=== PATIENT | male | born 1955 | race Caucasian/White ===

== ENCOUNTER 2023-04-09 19:58 | Emergency (ER) | payer MEDICARE, OTHER, SELFPAY ==
[2023-04-09 20:07] VITALS: BP 161/76; PULSE 82; RESP 18; TEMP 36.6; O2SAT 97; BMI 24.3
--- NOTE | 2023-04-09 20:13 | DI.CT.S_ITS ---
PROCEDURE: CT HEAD/BRAIN WO CON INDICATIONS: Hit head on wooden beam on Wednesday, severe h/a TECHNIQUE: Noncontrast 4.5 mm thick angled axial sections acquired from the foramen magnum to the vertex, with coronal and sagittal reformats. For radiation dose reduction, the following was used: automated exposure control, adjustment of mA and/or kV according to patient size. COMPARISON: None. FINDINGS: Image quality: Excellent. CSF spaces: Basal cisterns are patent. No extra-axial fluid collections. Ventricles are normal in size and shape. Brain: No intracranial hemorrhage, mass, or mass effect. Vasquez-white matter interface appears preserved. Skull and face: Calvarium and visualized facial bones are intact, without suspicious lesions. Sinuses: Visualized sinuses and mastoids are clear. IMPRESSION: 1. No acute intracranial abnormality. Dictated by: Marquis Vance M.D. on 04/09/2023 at 21:02 Approved by: Marquis Vance M.D. on 04/09/2023 at 21:08
--- NOTE | 2023-04-09 21:37 | ED.HEATRA ---
HPI - Head Injury General Chief complaint: Trauma Stated complaint: Head inj Time Seen by Provider: 04/09/23 21:36 Source: patient Mode of arrival: Ambulatory History of Present Illness HPI Narrative: Patient is a 67-year-old male history of hyperlipidemia presenting today after closed head injury. Reports walking down in the basement 3 days ago when he hit his head on a beam. He did not lose consciousness but does have large wound on the top of his head dropped him down. Since then he has been extremely fatigued no nausea or vomiting. He has been colder than normal despite the warm weather. No fever although he has been taking Tylenol 3 times a day. No numbness tingling or weakness he does not have any neck pain. noted that left eye was a little more droopy today. He also developed headache between his temples today which was abnormal. He is sensitive to light. No abdominal pain nausea vomiting. No painful frequent urination. No other symptoms. He is not on any antiplatelet or anticoagulation medication. Related Data Allergies Allergy/AdvReac Type Severity Reaction Status Date / Time grass pollen AdvReac Mild Verified 04/09/23 22:03 Review of Systems Review of Systems ROS Unobtainable: All systems reviewed & are unremarkable except as noted in HPI and below Patient History Social History Smoking Status: Never smoker Smoking Status: Never smoker alcohol intake frequency: 3 or more drinks per day Alcohol type: beer Substance Use Type: does not use Exam Initial Vital Signs Initial Vital Signs: Vital Signs Temperature 98 F 04/09/23 20:07 Pulse Rate 82 04/09/23 20:07 Respiratory Rate 18 04/09/23 20:07 Blood Pressure 161/76 H 04/09/23 20:07 Pulse Oximetry 97 04/09/23 20:07 Oxygen Delivery Method Room Air 04/09/23 20:07 GENERAL: Alert well-appearing 67-year-old male HEENT: Head posterior scalp large scabbed over area no significant depression no contusion,EOMI, pupils reactive, left-sided upper lid drooping and no proptosis appreciated face symmetric, [moist] mucous membranes CARDIOVASCULAR: Regular rate and rhythm without murmurs, rubs or gallops. RESPIRATORY: Breath sounds equal bilaterally, no wheezes rales or rhonchi. ABDOMEN: Soft, nontender. Normoactive bowel sounds all 4 quadrants. No guarding or rebound. EXTREMITIES: Normal range of motion, no clubbing or edema. Neurovascularly intact NEUROLOGICAL: Alert and oriented x4.Normal gait and speech. Cranial nerves II through XII grossly intact. SKIN: Warm, dry, no laceration, no petechiae, no rashes or lesions. Course Orders Ordered: ED Orders 04/09/23 20:13 CT head/brain wo con Stat 04/09/23 21:38 EKG-12 Lead Stat 04/09/23 21:45 Covid-19 + FLU A/B + RSV - PCR Stat 04/09/23 21:55 Complete Blood Count AUTO DIFF Stat Comprehensive Metabolic Panel Stat Lipase Stat Troponin & CK Cardiac Panel Stat Discontinued Medications Ketorolac Tromethamine (Ketorolac 30 Mg/Ml Vial) 15 mg IV NOW ONE Stop: 04/09/23 21:38 Last Admin: 04/09/23 21:56 Dose: 15 mg Documented By: AP Vital Signs Vital signs: Vital Signs - 8 hr 04/09/23 22:25 04/09/23 23:30 Pulse Rate 68 70 Respiratory Rate 18 16 Blood Pressure 126/71 135/64 Pulse Oximetry 98 98 Oxygen Delivery Method Room Air Room Air MDM - Head Injury Lab Data 04/09/23 21:55 04/09/23 21:55 Labs: Lab Results 04/09/23 04/09/23 04/09/23 Range/Units 21:45 21:55 21:55 WBC 5.8 (4.5-11.0) X10^3/uL RBC 4.63 (4.5-5.9) X10^6/uL Hgb 15.0 (13.5-17.5) g/dL Hct 42.4 (41-53) % MCV 91.6 (80-100) fL MCH 32.3 (26-34) PG MCHC 35.3 (30-36) % RDW 12.9 (11.6-14.8) % Plt Count 125 L (150-400) X10^3/uL Neut % (Auto) 50.7 (50-75) % Lymph % (Auto) 37.4 (25-40) % [place] % (Auto) 8.0 (3-14) % Eos % (Auto) 2.9 (2-4) % Baso % (Auto) 1.0 (0-2) % Neut # (Auto) 3000 (0009-0290) /uL Lymph # (Auto) 2200 (7226-4923) /uL [place] # (Auto) 500 (0-900) /uL Eos # (Auto) 200 (0-450) /uL Baso # (Auto) 100 (0-100) /uL Sodium 137 (137-145) mmol/L Potassium 4.3 (3.4-5.1) mmol/L Chloride 100 (98-107) mmol/L Carbon Dioxide 32 (22-32) mmol/L BUN 21 H (9-20) mg/dL Creatinine 1.02 (0.66-1.25) mg/dL Estimated GFR > 60 (>60) mL/min BUN/Creatinine Ratio 20.6 (6-22) Glucose 95 (80-110) mg/dL Calcium 9.3 (8.4-10.2) mg/dL Total Bilirubin 0.5 (0.2-1.3) mg/dL AST 28 (17-59) IU/L ALT 30 (<50) IU/L Alkaline Phosphatase 47 (38-126) U/L Total Creatine Kinase 53 L (55-170) U/L Troponin I < 0.012 (0.01-0.034) ng/mL Total Protein 7.7 (6.3-8.2) g/dL Albumin 4.5 (3.5-5.0) g/dL Globulin 3.2 (1.7-4.1) g/dL Albumin/Globulin Ratio 1.4 (1.0-2.8) Lipase 156 (23-300) U/L SARS-CoV-2 (PCR) Negative (Negative) Influenza A (RT-PCR) Flu a negative (NEGATIVE) Influenza B (RT-PCR) Flu b negative (NEGATIVE) RSV (PCR) Negative (Negative) Urine Dip Bedside Urine Glucose Negative Bedside Urine Bilirubin - Negative Bedside Urine Ketone - Negative Urine Specific [place] 1.01 Bedside Urine Occult Blood - Negative Bedside Urine pH 6 Bedside Urine Protein - Negative Bedside Urine Urobilinogen - Negative Bedside Urine Nitrite - Negative Bedside Urine Leukocytes - Negative Esterase Imaging Data CT scan - head: Radiologist's Impression: PROCEDURE:? CT HEAD/BRAIN WO CON ? INDICATIONS:? Hit head on wooden beam on Wednesday, severe h/a ? TECHNIQUE:? Noncontrast 4.5 mm thick angled axial sections acquired from the foramen magnum to the vertex, with coronal and sagittal reformats.? For radiation dose reduction, the following was used:? automated exposure control, adjustment of mA and/or kV according to patient size.? ? COMPARISON:? None. ? FINDINGS:? Image quality:? Excellent.? ? CSF spaces:? Basal cisterns are patent.? No extra-axial fluid collections.? Ventricles are normal in size and shape.? ? Brain:? No intracranial hemorrhage, mass, or mass effect.? Vasquez-white matter interface appears preserved.? ? Skull and face:? Calvarium and visualized facial bones are intact, without suspicious lesions.? ? Sinuses:? Visualized sinuses and mastoids are clear.? ? IMPRESSION:? ? 1. No acute intracranial abnormality. ? ? Dictated by: Marquis Vance M.D. on 04/09/2023 at 21:02 ? ? ECG Data Interpretation: Normal sinus rhythm rate 66 VA interval 164 QRS [address] changes no T-wave inversions MDM Narrative Medical decision making narrative: Patient having concussive like symptoms after hitting his head. No evidence of infection electrolyte abnormality or other source of symptoms. Head CT does not show any abnormality. He does have an obvious abrasion and wound but that seems to be healing. I suspect concussion. Lots of education with patient and about concussion. At this time supportive care only Discharge Plan Departure Patient Disposition: Home Clinical Impression: Concussion syndrome Instructions: DI for Concussion, DI for Postconcussion Syndrome Activity Restrictions/Additional Instructions: *You have been diagnosed with concussion *What to do: At this time you can expect to intermittently have headaches dizziness and some nausea. Head CT is negative. Other workup in the ED is also negative. *Continue to take medications as directed Motrin 600 mg every 6 hours if needed for avqu-am-fbarydsq pain Tylenol 1000 mg every 6 hours if needed for atcx-rw-[id number] pain *Follow up with your primary care provider in 2-3 days or call [phone] *Return to ER if you should have persistent vomiting numbness tingling weakness visual changes facial droop or any new, worsening or concerning symptoms Stand Alone Forms: Patient Portal/API
[2023-04-09] MEDS: KETOROLAC 30 MG/ML VIAL 15 MG IV (21:56)
[2023-04-09 22:04] LABS: Add Manual Diff / Slide Review NO; Basophils Absolute Auto 100 /uL (0-100); Eosinophils Absolute Auto 200 /uL (0-450); Eosinophils Percent Auto 2.9 % (2-4); Hematocrit 42.4 % (41-53); Lymphocytes Absolute Auto 2200 /uL (1100-4500); Lymphocytes Percent Auto 37.4 % (25-40); Mean Corpuscular HGB Conc 35.3 % (30-36); Mean Corpuscular Hemoglobin 32.3 PG (26-34); Mean Corpuscular Volume 91.6 fL (80-100); Monocytes Absolute Auto 500 /uL (0-900); Neutrophils Absolute Auto 3000 /uL (1500-7000); Neutrophils Percent Auto 50.7 % (50-75); Platelet Count 125 X10^3/uL (150-400); Red Blood Cell Count 4.63 X10^6/uL (4.5-5.9); Red Cell Distribution Width 12.9 % (11.6-14.8); White Blood Cell Count 5.8 X10^3/uL (4.5-11.0)
[2023-04-09 22:25] VITALS: BP 126/71; PULSE 68; RESP 18; O2SAT 98
[2023-04-09 22:27] LABS: Alanine Aminotransferase 30 IU/L (<50); Albumin 4.5 g/dL (3.5-5.0); Albumin Globulin Ratio 1.4 (1.0-2.8); Alkaline Phosphatase 47 U/L (38-126); Aspartate Aminotransferase 28 IU/L (17-59); BUN Creatinine Ratio 20.6 (6-22); Bilirubin Total 0.5 mg/dL (0.2-1.3); Blood Urea Nitrogen 21 mg/dL (9-20); Calcium 9.3 mg/dL (8.4-10.2); Carbon Dioxide 32 mmol/L (22-32); Chloride 100 mmol/L (98-107); Creatine Kinase 53 U/L (55-170); Estimated Glomerular Filt Rate > 60 mL/min (>60); Globulin 3.2 g/dL (1.7-4.1); Glucose 95 mg/dL (80-110); HEMOLYSIS < 15 (0-50); Lipase 156 U/L (23-300); Potassium 4.3 mmol/L (3.4-5.1); Sodium 137 mmol/L (137-145); Total Protein 7.7 g/dL (6.3-8.2)
[2023-04-09 22:33] LABS: Influenza A - CEPHEID Flu A NEGATIVE (NEGATIVE); Influenza B - CEPHEID Flu B NEGATIVE (NEGATIVE); Respiratory Syncytial Virus Negative (Negative)
[2023-04-09 22:39] LABS: Troponin I < 0.012 ng/mL (0.01-0.034)
[2023-04-09 22:40] LABS: COVID-19 CEPHEID 4-PLEX PCR Negative (Negative)
[2023-04-09 23:30] VITALS: BP 135/64; PULSE 70; RESP 16; O2SAT 98
== END 2023-04-09 23:48 | disposition home or self-care (01) ==
PROVIDERS: Emergency Provider Emergency Medicine
DX: S06.0X0A Concussion without loss of consciousness, initial encounter (principal); W22.8XXA Striking against or struck by other objects, initial encounter; Z20.822 Contact with and (suspected) exposure to COVID-19; R03.0 Elevated blood-pressure reading, without diagnosis of hypertension
CPT/HCPCS: 0241U; 36415; 70450; 80053; 81003; 82550; 83690; 84484; 85025; 93005; 93010; 96374; 99284; J1885

== ENCOUNTER 2023-07-07 09:14 | Outpatient (RCR) | payer MEDICARE, OTHER, SELFPAY ==
--- NOTE | 2023-07-07 15:14 | PT.OIE ---
Current Diagnoses Postconcussional syndrome (07/07/23) Dizziness and giddiness (07/07/23) Visit Care Team Role Provider Type Sigifredo Putnam MD Primary Care Provider Non-Staff Specialty: Internal Medicine Address: [address], [place], [address] Email: Other Providers Specialty: Address: Phone: Fax: Email: Elmer Brizuela MD Attending Provider Non-Staff Referring Provider Specialty: Sports Medicine Address: [facility] [address], [place], [address] Fax: Email: Physical Therapy Initial Evaluation PT-OP-A Visit Information Start: 07/07/23 10:07 Freq: Status: Active Protocol: Document 07/07/23 09:30 DCW (Rec: 07/07/23 10:09 DCW [id number]) Out-Patient Physical Therapy Visit Information Visit Information Visit Type Initial Evaluation Visit Start Time 09:30 Visit Stop Time 09:55 Total Visit Minutes 25 Visit Number 1 Number of MATERIAL CLERK Visits 0 Evaluation Information Evaluation Date 07/07/23 PT-OP-B Current Condition Start: 07/07/23 10:07 Freq: Status: Active Protocol: Document 07/07/23 09:30 DCW (Rec: 07/07/23 15:11 DCW [id number]) Current Condition History of Current Condition Onset Date April 06, 2023 Current Complaints None History of Current Condition Pt suffered a concussion three months ago after hitting his head on a beam while walking down the stairs to his basement. No LOC, however was experiencing severe fatigue, headaches, light-sensitivity, dizziness, and poor balance. Was seen in the ED three days later. Head CT was negative. Pt reports he was given some medication and then pretty much slept through the month of April and half of May. Was still suffering from headaches, dizziness, and balance issues, but has gone from not being able to walk a block to walking 2-3 miles with his dog , and has been practicing balance by walking on the beach and walking backwards. Has been showing great improvement over the last 1.5 months, and feels like he has pretty much returned to normal . Has been up on ladders trimming trees and has returned to driving. Pt currently has no complaints or concerns. PT-OP-C Subjective Start: 07/07/23 10:07 Freq: Status: Active Protocol: Document 07/07/23 09:30 DCW (Rec: 07/07/23 10:09 DCW [id number]) OP-PT Subjective Patient Comments Patient Comments I'm sorry if I'm wasting your time, I'm feeling pretty good , but the doctor wanted me to check in with you to make sure there was nothing he was missing. PT-OP-O Vestibular Start: 07/07/23 10:07 Freq: Status: Active Protocol: Document 07/07/23 09:30 DCW (Rec: 07/07/23 10:12 DCW [id number]) Vestibular Assessment Visual Testing Smooth Pursuits Horizontal WNL Smooth Pursuits Vertical WNL Saccades Horizontal WNL Saccades Vertical WNL Cover/Uncover Test WNL Convergence Test 8 cm Vestibulo-Ocular Reflex (VOR1) Negative Vestibular Function Tests Fukuda Test WNL Comments Vestibular Comments Slight difficulty with convergence, although more than likely due to prior history of Lasik procedure, with one eye adjusted for distance, and the other adjusted for near. Did not perform DVA and thrust/heave testing due to trying to avoid jarring head movements PT-OP-T Assessment and Plan Start: 07/07/23 10:07 Freq: Status: Active Protocol: Document 07/07/23 09:30 DCW (Rec: 07/07/23 15:14 DCW [id number]) Physical Therapy Assessment Rehab Potential Rehabilitation Potential Excellent Assessment Summary Assessment Pt has largely returned to prior level of function at this time. Balance and vestibular testing largely WNL , no concerns with oculomotor testing. Limited with DVA and thrust/heave testing secondary to still trying to avoid any jarring head movements, but otherwise no indications for continued need for further out -patient therapeutic intervention. Pt will be discharged from skilled PT at this time. Physical Therapy Plan Frequency and Duration Frequency of Treatment 1x/Week Plan of Care Start Date 07/07/23 Plan of Care End Date 07/08/23 Discharge Physical Therapy Discharge Comments No further PT indicated at this time. Next Visit Focus/Plan Next Note Type Discharge Summary
--- NOTE | 2023-07-07 15:14 | PT.OPPOC ---
Physical, Occupational & Speech Therapy At [facility] Current Diagnoses Postconcussional syndrome (07/07/23) Dizziness and giddiness (07/07/23) Visit Care Team Role Provider Type Sigifredo Putnam MD Primary Care Provider Non-Staff Specialty: Internal Medicine Address: [address] [place], [address] Email: Other Providers Specialty: Address: Phone: Fax: Email: Elmer Brizuela MD Attending Provider Non-Staff Referring Provider Specialty: Sports Medicine Address: [facility] [address], [place], [address] Fax: Email: Plan Of Care PT-OP-T Assessment and Plan Start: 07/07/23 10:07 Freq: Status: Active Protocol: Document 07/07/23 09:30 DCW (Rec: 07/07/23 15:14 DCW [id number]) Physical Therapy Assessment Rehab Potential Rehabilitation Potential Excellent Assessment Summary Assessment Pt has largely returned to prior level of function at this time. Balance and vestibular testing largely WNL , no concerns with oculomotor testing. Limited with DVA and thrust/heave testing secondary to still trying to avoid any jarring head movements, but otherwise no indications for continued need for further out -patient therapeutic intervention. Pt will be discharged from skilled PT at this time. Physical Therapy Plan Frequency and Duration Frequency of Treatment 1x/Week Plan of Care Start Date 07/07/23 Plan of Care End Date 07/08/23 Discharge Physical Therapy Discharge Comments No further PT indicated at this time. Next Visit Focus/Plan Next Note Type Discharge Summary Plan of Care Dates Plan of Care Start Date 07/07/23 Plan of Care End Date 07/08/23 Electronically Signed by: Zachariah Muniz, PT 07/07/23 3177 If you are in agreement with this Plan of Care, please return a signed and dated copy. I have reviewed this Plan of Care and certify that the skilled therapy services above are required to meet the patient?s needs. Physician Signature Date Printed Name and Credentials Clinical Instructor Signature Printed Name and Credentials
== END 2023-07-20 11:22 | disposition home or self-care (01) ==
LOC: PHYS 09:14
PROVIDERS: PCP Internal Medicine; Referring Provider Family Medicine; Visit Provider Family Medicine
DX: F07.81 Postconcussional syndrome (principal); R42 Dizziness and giddiness
CPT/HCPCS: 97161